=== PATIENT | female | born 1955 | race Caucasian/White ===

== ENCOUNTER 2018-01-21 16:48 | Emergency (ER) | payer BC ==
--- NOTE | 2018-01-21 16:59 | Emergency Department Record ---
History of Present Illness - General Chief Complaint: Ankle/Foot Injury Stated Complaint: LT ANKLE PAIN Time Seen by Provider: 01/21/18 16:54 Source: Patient Mode of Arrival: Ambulatory Limitations: No limitations - History of Present Illness Initial Comments: The patient inverted and injured her L ankle about an hour ago after jumping down from the cab of a truck. She states she felt a "pop" and has been unable to walk on it. She denies any other injuries. MD Complaint: Ankle injury - Related Data Home Medications Medication Instructions Recorded Confirmed Last Taken Benazepril/Hydrochlorothiazide 1 tab PO DAILY 01/21/18 01/21/18 Unknown [Lotensin Hct 20-25 mg Tablet] Calcium Carbonate [Calcium] 600 mg PO DAILY 01/21/18 01/21/18 Unknown Cholecalciferol (Vitamin D3) 2,000 unit PO DAILY 01/21/18 01/21/18 Unknown [Vitamin D3] Diclofenac Sodium [Voltaren] 100 gm TP BID 01/21/18 01/21/18 Unknown Escitalopram Oxalate [Lexapro] 20 mg PO DAILY 01/21/18 01/21/18 Unknown Glucosamine HCl 1,500 mg PO DAILY 01/21/18 01/21/18 Unknown Lovastatin 20 mg PO DAILY 01/21/18 01/21/18 Unknown Colbert-3 Fatty Acids/Fish Oil [Fish 400 mg PO BID 01/21/18 01/21/18 Unknown Oil 1,000 mg Capsule] Ranitidine HCl [Zantac] 150 mg PO BID 01/21/18 01/21/18 Unknown Previous Rx's Medication Instructions Recorded Naproxen [Naprosyn] 250 mg PO BID #14 tablet 01/21/18 Allergies Allergy/AdvReac Type Severity Reaction Status Date / Time No Known Drug Allergies Allergy Verified 01/21/18 17:03 Review of Systems Constitutional: Denies: Chills, Fever Eyes: Denies: Eye discharge ENT: Denies: Congestion Respiratory: Denies: Cough, Dyspnea Past Medical History - SOCIAL HISTORY Smoking Status: Never smoker Alcohol Use: None Drug Use: None - RESPIRATORY Hx Respiratory Disorders: Yes Hx Pneumonia: Yes - CARDIOVASCULAR Hx Cardio Disorders: Yes Hx Heart Attack: No Hx Hypertension: Yes - NEURO Hx Neuro Disorders: No - GI Hx GI Disorders: No Physical Exam - General General Appearance: Alert, Cooperative, No acute distress - Head Head exam: Atraumatic, Normocephalic - Eye Eye exam: Normal appearance, PERRL - Neck Neck exam: Normal inspection - Extremities Extremities exam: Normal capillary refill, Tenderness (over the distal lateral malleolus.), Other (The L foot is NVI with normal pulses. The L knee is nontender.). negative: Normal inspection (There is mild swelling at the lateral malleolus.), Calf tenderness, Full ROM, Joint swelling, Pedal edema - Neurological Neurological exam: Abnormal gait. negative: Normal gait Course - Reevaluation(s) Reevaluation #1: I did discuss the xrays with the patient and the need to be non weight bearing and to see her PCP for an Ortho referral. 01/21/18 17:46 Medical Decision Making - Data Complexity MDM Data: X-Ray Ordered and/or Reviewed - Radiology Data Radiology results: Report reviewed (L ankle: non displaced distal fib avulsion fx.) Disposition Disposition: Discharge Clinical Impression: Ankle fracture, left Qualifiers: Encounter type: initial encounter Fracture type: closed Qualified Code(s): S82.892A - Other fracture of left lower leg, initial encounter for closed fracture Disposition: Home, Self-Care Condition: (2) Stable Instructions: Ankle Fracture (ED) Additional Instructions: Please take the pain medicines as directed and ice and elevate the ankle when possible. Do not walk on the ankle and use the boot and crutches at all time. Please see your family doctor this week for recheck and to obtain an Orthopedic doctor referral. Prescriptions: Naproxen [Naprosyn] 250 mg PO BID #14 tablet Forms: Patient Portal Access Time of Disposition: 17:48 Quality - Quality Measures Quality Measures: N/A - Blood Pressure Screening View Details: Yes Does Patient Have Any of the Following: No Blood Pressure Classification: Pre-Hypertensive BP Reading Systolic Measurement: 189 Diastolic Measurement: 88 Screening for High Blood Pressure: < Pre-Hypertensive BP, F/U Documented > [ [id number]] Pre-Hypertensive Follow-up Interventions: Referral to alternative/primary care provider.
[2018-01-21] MEDS ORDERED: ACETAMINOPHEN W/ CODEINE 300MG/30MG TABLET PO ONE ×2 (17:30→17:45)
--- NOTE | 2018-01-22 14:02 | RADIOLOGY REPORT ---
EXAM: LEFT ANKLE HISTORY: PATIENT HAS A HISTORY OF INJURY. TECHNIQUE: Three views of the left ankle are provided without comparison examinations. FINDINGS: Significant soft tissue swelling is noted over the lateral malleolus. There is a nondisplaced 1.2 cm avulsion fracture of the inferior tip of the lateral malleolus. The ankle mortise appears to remain intact. On the oblique view only, there is a curvilinear density identified at the inferior margin of the medial malleolus which I suspect likely represent enthesophyte. No radiopaque foreign bodies are identified. Lateral projection demonstrates anterior tibiotalar fat pad prominence. Questionable loose body is noted within the anterior tibiotalar articulation. Plantar enthesophytes are identified within the calcaneus. IMPRESSION: POST TRAUMATIC CHANGES OF THE LEFT ANKLE ARE NOTED DESCRIBED. JOB NUMBER: [id number] MTDD
== END 2018-01-21 18:15 | disposition home or self-care (01) ==
LOC: ER 16:48
DX: S82.65XA Nondisplaced fracture of lateral malleolus of left fibula, initial encounter for closed fracture (principal); X50.0XXA Overexertion from strenuous movement or load, initial encounter; I10 Essential (primary) hypertension; I25.2 Old myocardial infarction
CPT/HCPCS: 99283